=== PATIENT | female | born 2000 | race African-American/Black ===

== ENCOUNTER 2023-09-13 09:31 | Outpatient (CLI) | payer OTHER | END 2023-09-13 09:34 | disposition home or self-care (01) | LOC: PRENATAL 09:31 | PROVIDERS: ATTEND Obstetrics & Gynecology Maternal & Fetal Medicine | DX: O26.842 Uterine size-date discrepancy, second trimester (principal); O34.30 Maternal care for cervical incompetence, unspecified trimester; Z3A.18 18 weeks gestation of pregnancy ==

== ENCOUNTER 2023-10-24 13:39 | Outpatient (CLI) | payer OTHER | END 2023-10-24 13:40 | disposition home or self-care (01) | LOC: PRENATAL 13:39 | PROVIDERS: ATTEND Obstetrics & Gynecology Maternal & Fetal Medicine | DX: O44.00 Complete placenta previa NOS or without hemorrhage, unspecified trimester (principal); O26.879 Cervical shortening, unspecified trimester; Z3A.24 24 weeks gestation of pregnancy ==

== ENCOUNTER 2023-11-27 09:17 | Outpatient (CLI) | payer OTHER | END 2023-11-27 09:18 | disposition home or self-care (01) | LOC: PRENATAL 09:17 | PROVIDERS: ATTEND Obstetrics & Gynecology Maternal & Fetal Medicine | DX: O26.849 Uterine size-date discrepancy, unspecified trimester (principal); O36.8199 Decreased fetal movements, unspecified trimester, other fetus; O26.879 Cervical shortening, unspecified trimester; Z3A.28 28 weeks gestation of pregnancy ==

== ENCOUNTER 2024-01-08 09:59 | Outpatient (CLI) | payer OTHER | END 2024-01-08 10:00 | disposition home or self-care (01) | LOC: PRENATAL 09:59 | PROVIDERS: ATTEND Obstetrics & Gynecology Maternal & Fetal Medicine | DX: O26.849 Uterine size-date discrepancy, unspecified trimester (principal); O36.8199 Decreased fetal movements, unspecified trimester, other fetus; O99.019 Anemia complicating pregnancy, unspecified trimester; Z3A.34 34 weeks gestation of pregnancy ==

== ENCOUNTER 2024-02-06 12:19 | Inpatient (IN) | payer OTHER ==
[~2024-02-06] VITALS: Ht 154.9 cm; Wt 79.4 kg
[2024-02-06] MEDS ORDERED: PRENATAL + DHA1 EAC1 PO (12:44)
[2024-02-06] MEDS ORDERED: RINGERS SOLUTION,LACTATED 1,000 ML IV SCH (12:45)
[2024-02-06] MEDS ORDERED: AMPICILLIN SODIUM 2,000 MG VIAL IV ONE (12:45)
[2024-02-06 12:52] VITALS: BP 115/68
[2024-02-06] MEDS ORDERED: OXYTOCIN 500 ML IV SCH (13:00)
[2024-02-06] MEDS ORDERED: AMPICILLIN SODIUM 1,000 MG VIAL IV SCH (13:00)
[2024-02-06] MEDS ORDERED: MORPHINE SULFATE 4 MG/ML CARTRIDGE IV ONE (13:00)
[2024-02-06 13:37] LABS: PH,URINE 7.5 (5.0-8.0); URINE APPEARANCE Clear; URINE BILIRRUBIN Negative (NEGATIVE); URINE BLOOD Negative; URINE COLOR Dark Yellow; URINE GLUCOSE Negative (NEGATIVE); URINE KETONE 15 (NEGATIVE); URINE LEUKOCYTE Trace; URINE NITRATE Negative; URINE PROTEIN 30 (NEGATIVE)
[2024-02-06 13:38] LABS: HEMATOCRIT 32.6 % (36.0-45.00); HEMOGLOBIN 10.4 g/dL (12.0-15.00); MEAN CELL VOLUME 77.6 fL (80.00-100.00); MEAN CORPUSCULAR HEMOGLOBIN 24.8 pg (27.00-32.0); PLATELET COUNT 266 K/uL (150-450); RED CELL DISTRIBUTION WIDTH 16.1 % (11.5-14.5)
[2024-02-06 13:40] LABS: URINE BACTERIA 498.1 uL (0.0-1933); URINE EPITHELIAL CELLS 32.2 uL (0.0-38.8); URINE WBC 16.6 uL (0.0-23.2)
[2024-02-06 13:46] LABS: URINE CAST 0.29 uL (0.0-1.40); URINE RBC 1.3 uL (0.0-20.8)
[2024-02-06] MEDS ORDERED: ERYTHROMYCIN BASE OPHT 1GM EACH TUBE OP ONE (13:46)
[2024-02-06] MEDS ORDERED: OXYTOCIN 20 UNITS/1000ML RL PIGGYBAG IV ONE (13:46)
[2024-02-06] MEDS ORDERED: CHLORHEXIDINE GLUCONATE 120 ML BOTTLE TOP ONE (13:46)
[2024-02-06] MEDS ORDERED: LIDOCAINE HCL 1% 10ML VIAL ONE (13:46)
[2024-02-06 13:59] LABS: INR 0.94; PARTIAL THROMBOPLASTIN TIME 27.1 SECONDS (22.0-34.0); PROTHROMBIN TIME 10.3 SECONDS (9.0-11.5)
[2024-02-06] MEDS ORDERED: IBUprofen 400 MG TABLET PO PRN (14:30)
[2024-02-06 16:08] VITALS: BP 131/62
[2024-02-06 17:14] VITALS: BP 128/83
[2024-02-06 21:16] LABS: HEMATOCRIT 30.3 % (36.0-45.00); HEMOGLOBIN 9.7 g/dL (12.0-15.00); MEAN CELL VOLUME 78.1 fL (80.00-100.00); PLATELET COUNT 213 K/uL (150-450); RED BLOOD COUNT 3.88 M/uL (4.00-6.00); RED CELL DISTRIBUTION WIDTH 16.5 % (11.5-14.5)
[2024-02-07 00:38] VITALS: BP 118/78
[2024-02-07] MEDS ORDERED: PNV,CALCIUM 72/IRON/FOLIC ACID 1 TAB TABLET PO SCH (09:00)
[2024-02-07 15:47] VITALS: BP 131/75
[2024-02-08] VITALS: BP 120/79
[2024-02-08 08:46] VITALS: BP 118/79
== END 2024-02-08 13:34 | disposition home or self-care (01) | DRG 807 ==
LOC: OB/GYN 12:19 → LDR 12:19 → OB/GYN 14:38
PROVIDERS: ADMIT Obstetrics & Gynecology; ATTEND Obstetrics & Gynecology
PROC: 10E0XZZ Delivery of Products of Conception, External Approach (ICD-10-PCS; principal; 2024-02-06)
PROC: 0KQM0ZZ Repair Perineum Muscle, Open Approach (ICD-10-PCS; 2024-02-06)
PROC: 4A1HXCZ Monitoring of Products of Conception, Cardiac Rate, External Approach (ICD-10-PCS; 2024-02-06)
DX: O70.1 Second degree perineal laceration during delivery (principal); Z37.0 Single live birth; Z3A.38 38 weeks gestation of pregnancy; Z20.822 Contact with and (suspected) exposure to COVID-19